=== PATIENT | female | born 2000 | race Hispanic/Latino ===

== ENCOUNTER 2020-11-29 12:05 | Emergency (ER) | payer BC, OTHER ==
[~2020-11-29] VITALS: Ht 157.5 cm; Wt 119.7 kg
[~2020-11-29 12:05] MED LIST: AZITHROMYCIN250 MG PO
== END 2020-11-29 14:02 | disposition home or self-care (01) ==
LOC: ER 14:02
DX: L03.115 Cellulitis of right lower limb (principal)
CPT/HCPCS: 99283